=== PATIENT | female | born 1985 | race African-American/Black ===

== ENCOUNTER 2016-08-31 14:40 | Emergency (ER) | payer OTHER ==
[2016-08-31] MEDS ORDERED: IV NORMAL SALINE 1,000ML 1,000 ML IV SCH (15:15)
[2016-08-31] MEDS ORDERED: IOHEXOL 300 MG/ML 75 ML VIAL. IV ONE (15:15)
[2016-08-31 15:25] LABS: BASO # 0.1 x10^3/uL (0.0-0.2); BASO % 1 % (0-3); EOS % 1 % (0-3); HEMATOCRIT 36.1 % (36.0-47.0); HEMOGLOBIN 12.5 g/dL (12.0-15.5); LYMPH % 39 % (24-48); MEAN CORPUSCULAR HEMOGLOBIN 29 pg (25-35); MEAN CORPUSCULAR HGB CONC 35 g/dL (31-37); MEAN CORPUSCULAR VOLUME 85 fL (79-100); MONO # 0.4 x10^3/uL (0.0-1.1); MONO % 8 % (0-9); NEUT # 2.6 x10^3uL (1.8-7.7); NEUT % 51 % (31-73); PLATELET COUNT 254 x10^3/uL (140-400); RED BLOOD COUNT 4.26 x10^6/uL (3.50-5.40); RED CELL DISTRIBUTION WIDTH 12.8 % (11.5-14.5); WHITE BLOOD COUNT 5.2 x10^3/uL (4.0-11.0)
--- NOTE | 2016-08-31 15:35 | PHYS DOC ---
General Chief Complaint: CHEST PAIN Stated Complaint: CHEST PAIN Time Seen by MD: 14:43 Source: patient Exam Limitations: no limitations Problems: History of Present Illness Initial Comments Pt is 31/F to ED to r/u PE/DVT. Pt with abdominal procedure last week for endometriosis Dr Kaur, has had right calf tightness with left lateral cp/sob since Tuesday. States after discussing with Dr Kaur she referred pt to ED to r/o PE/DVT/other. No other complaints. Timing/Duration: 1 week Severity: moderate Modifying Factors: worse with movement, improves with rest Associated Symptoms: chest pain, shortness of breath, other Allergies: Coded Allergies: amitriptyline (Unverified Allergy, Unknown, 08/31/16) Past Medical History Medical History: other (endometriosis migraines) Surgical History: other (exp lap last week) Social History Smoker: non-smoker Alcohol: none Drugs: none Review of Systems Constitutional: denies chills, denies diaphoresis, denies fever, malaise Respiratory: denies cough, shortness of breath Cardiovascular: chest pain, denies palpitations Gastrointestinal: see HPI, denies diarrhea, denies nausea, denies vomiting Genitourinary: see HPI, denies discharge, denies dysuria, denies frequency Musculoskeletal: denies back pain, denies joint swelling, denies neck pain Psychiatric/Neurological: denies headache, denies numbness, denies paresthesia Physical Exam General Appearance: WD/WN, no apparent distress Eyes: bilateral eye normal inspection, bilateral eye PERRL, bilateral eye EOMI Ear, Nose, Throat: hearing grossly normal, normal ENT inspection, normal pharynx Neck: non-tender, supple Respiratory: normal breath sounds, no respiratory distress Cardiovascular: normal peripheral pulses, regular rate, rhythm Gastrointestinal: non tender, soft Back: no CVA tenderness, no vertebral tenderness Extremities: non-tender, normal inspection 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 PHYSICIAN: CANDELARIA BLACKBURN DO REASON: cp PROCEDURE: CHEST AP ONLY EXAM: CHEST 1 VIEW History: Shortness of breath after surgery, chest pain COMPARISON: None available. TECHNIQUE: Single portable radiograph of the chest FINDINGS: The cardiac silhouette is unremarkable. The lungs are clear bilaterally. The costophrenic sulci are clear and well demarcated. IMPRESSION: No radiographic evidence of an acute cardiopulmonary process. DICTATED AND SIGNED BY: MARISELA STEIN MD DATE: 08/31/16 155 CC: OCTAVIANO IRELAND; CANDELARIA BLACKBURN DO ~ PATIENT: YORDAN LAU ACCOUNT: [id number] : 1985 LOCATION: ER AGE: 31 SEX: F EXAM STATUS: REG ER ORD. PHYSICIAN: CANDELARIA BLACKBURN DO REASON: cp, leg pain, surgery last week r/o PE vs other PROCEDURE: CT ANGIOGRAPHY CHEST Examination: CT angiogram chest with IV contrast History: History of chest pain, shortness of breath. Comparison: None available Technique: Axial CT and radiographic images were performed with IV contrast. Coronal and sagittal 3-D MIP reformats are performed PQRS Compliance Statement: One or more of the following individualized dose reduction techniques were utilized for this examination: 1. Automated exposure control 2. Adjustment of the mA and/or kV according to patient size 3. Use of iterative reconstruction technique Findings: The visualized thyroid gland grossly appears unremarkable. The central airways are patent. The caliber of the aorta grossly appears unremarkable. There is no evidence of filling defect identified in the main pulmonary artery, the right and left main pulmonary arteries and the visualized lobar, segmental branches. The lungs are clear The visualized liver, spleen, adrenals grossly appears unremarkable. No evidence of lytic bony destructive lesion. Impression: 1. No evidence of pulmonary embolism. 2. The lungs are clear. DICTATED AND SIGNED BY: MARISELA STEIN MD DATE: 08/31/16 155 CC: OCTAVIANO IRELAND; CANDELARIA BLACKBURN DO ~ PATIENT: YORDAN LAU ACCOUNT: [id number] : 1985 LOCATION: ER AGE: 31 SEX: F EXAM STATUS: REG ER ORD. PHYSICIAN: CANDELARIA BLACKBURN DO REASON: calf pain/swelling, uterine surg last week PROCEDURE: VENOUS LOWER EXTREMITY RIGHT Examination: Ultrasound right lower extremity venous duplex History: History of right leg pain, shortness of breath Comparison: None available Technique: Grayscale, color Doppler 2-D, spectral waveforms of the right lower extremity venous system were performed. Findings: The visualized common femoral vein, superficial femoral vein, popliteal vein demonstrate normal compression and augmentation of flow. The visualized calf veins are patent. Impression: No evidence of deep venous thrombosis identified in the visualized right lower extremity venous system. DICTATED AND SIGNED BY: MARISELA STEIN MD DATE: 08/31/161534 CC: OCTAVIANO IRELAND; CANDELARIA BLACKBURN DO ~ d-dimer 0.68 otherwise reassuring workup I discussed pt with Dr Kaur via phone, she recommends d/c home. Departure Time of Disposition: 16:33 Disposition: 01 HOME, SELF-CARE Diagnosis: chest pain nos, R calf strain Condition: GOOD Patient Instructions: Chest Pain (Nonspecific)-Brief, Muscle Strain, Easy-to- Read Additional Instructions: Continue post-op care per your BULLDOGGER. Activity as tolerated. Heating pad to affected area 15 minutes, 4-6 times daily followed by gentle stretching. Follow up with Dr Kaur as scheduled. Return to ED with new or changing symptoms. CANDELARIA BLACKBURN DO August 31, 2016 15:35
[2016-08-31 15:37] LABS: ALBUMIN 3.3 g/dL (3.4-5.0); ALBUMIN/GLOBULIN RATIO 0.8 (1.0-1.7); CREATININE 0.9 mg/dL (0.6-1.0); GFR 89.6; POTASSIUM 3.5 mmol/L (3.5-5.1); TOTAL BILIRUBIN 0.3 mg/dL (0.2-1.0); TOTAL PROTEIN 7.3 g/dL (6.4-8.2)
--- NOTE | 2016-08-31 15:39 | RAD ---
Examination: Ultrasound right lower extremity venous duplex History: History of right leg pain, shortness of breath Comparison: None available Technique: Grayscale, color Doppler 2-D, spectral waveforms of the right lower extremity venous system were performed. Findings: The visualized common femoral vein, superficial femoral vein, popliteal vein demonstrate normal compression and augmentation of flow. The visualized calf veins are patent. Impression: No evidence of deep venous thrombosis identified in the visualized right lower extremity venous system.
--- NOTE | 2016-08-31 15:58 | RAD ---
Examination: CT angiogram chest with IV contrast History: History of chest pain, shortness of breath. Comparison: None available Technique: Axial CT and radiographic images were performed with IV contrast. Coronal and sagittal 3-D MIP reformats are performed RS Compliance Statement: One or more of the following individualized dose reduction techniques were utilized for this examination: 1. Automated exposure control 2. Adjustment of the mA and/or kV according to patient size 3. Use of iterative reconstruction technique Findings: The visualized thyroid gland grossly appears unremarkable. The central airways are patent. The caliber of the aorta grossly appears unremarkable. There is no evidence of filling defect identified in the main pulmonary artery, the right and left main pulmonary arteries and the visualized lobar, segmental branches. The lungs are clear The visualized liver, spleen, adrenals grossly appears unremarkable. No evidence of lytic bony destructive lesion. Impression: 1. No evidence of pulmonary embolism. 2. The lungs are clear.
--- NOTE | 2016-08-31 16:00 | RAD ---
EXAM: CHEST 1 VIEW History: Shortness of breath after surgery, chest pain COMPARISON: None available. TECHNIQUE: Single portable radiograph of the chest FINDINGS: The cardiac silhouette is unremarkable. The lungs are clear bilaterally. The costophrenic sulci are clear and well demarcated. IMPRESSION: No radiographic evidence of an acute cardiopulmonary process.
--- NOTE | 2016-08-31 16:03 | EKG ---
[address] [address] Test Date: 2016-08-31 Test Time: 15:07:44 Pat Name: YORDAN LAU Department: Room: Gender: F Client Experience Administrator: SCHUYLER : 1985 Requested By: CANDELARIA BLACKBURN Order Number: [id number] Reading MD: Barak Murphy Measurements Intervals [place] Rate: 63 P: [place]: QRS: 73 QRSD: 82 T: 38 QT: 408 QTc: 421 Interpretive Statements SR Electronically Signed On 09-01-2016 9:10:15 CDT by Barak Murphy
[2016-08-31 16:29] LABS: AMPHETAMINE/METHAMPHETAMINE NEG (NEG); BARBITURATES NEG (NEG); BENZODIAZEPINES NEG (NEG); CANNABINOIDS NEG (NEG); COCAINE NEG (NEG); METHADONE NEG (NEG); OPIATES NEG (NEG); PHENCYCLIDINE NEG (NEG)
[2016-08-31 16:37] LABS: BACTERIA,URINE FEW /HPF (0-FEW); BILIRUBIN,URINE NEG (NEG); CLARITY,URINE HAZY; COLOR,URINE YELLOW; GLUCOSE,URINE NEG (NEG); NITRITE,URINE NEG (NEG); RBC,URINE 0 /HPF (0-2); SQUAMOUS EPITHELIAL CELL,UR MOD /LPF; UROBILINOGEN,URINE 0.2 mg/dL (0.2 mg/dL); WBC,URINE RARE /HPF (0-4)
[2016-08-31 16:50] VITALS: BP 110/61
== END 2016-08-31 16:55 | disposition home or self-care (01) ==
LOC: ER 14:40
DX: R07.89 Other chest pain (principal); S86.811A Strain of other muscle(s) and tendon(s) at lower leg level, right leg, initial encounter; G43.909 Migraine, unspecified, not intractable, without status migrainosus; Z88.8 Allergy status to other drugs, medicaments and biological substances; X58.XXXA Exposure to other specified factors, initial encounter; Y93.89 Activity, other specified; Y99.8 Other external cause status; Y92.89 Other specified places as the place of occurrence of the external cause
CPT/HCPCS: 36415; 71010; 71275; 80053; 80305; 81001; 82550; 83690; 84484; 85027; 85379; 93005; 93971; 96360; 99285; Q9967; G0481; J7030